=== PATIENT | male | born 1995 | race Caucasian/White ===

== ENCOUNTER 2021-07-16 17:05 | Emergency (ER) | payer OTHER ==
[~2021-07-16 17:05] MED LIST: BACTRIM DS TAB1 EACH PO; KEFLEX CAP 500500 MG PO; NORCO 5-325 TA1 EACH PO
[2021-07-16] MEDS ORDERED: BACTROBAN OINT22 GM EXT ×2 (19:30→19:31)
[2021-07-16] MEDS ORDERED: CEPHALEXIN500 M1 PO ×2 (19:30→19:31)
[2021-07-16] MEDS ORDERED: NAPROXEN500 MG PO ×2 (19:30→19:31)
== END 2021-07-16 19:35 | disposition home or self-care (01) ==
LOC: ER1 17:05
DX: S61.411A Laceration without foreign body of right hand, initial encounter (principal); F17.210 Nicotine dependence, cigarettes, uncomplicated; W01.111A Fall on same level from slipping, tripping and stumbling with subsequent striking against power tool or machine, initial encounter
CPT/HCPCS: 12001; 73130; 99283